=== PATIENT | male | born 1965 | race Hispanic/Latino ===

== ENCOUNTER 2018-05-23 09:11 | Emergency (ER) | payer BC ==
[2018-05-23 11:35] LABS: #Eosinphils 0.1 thou/uL (0.0-0.7); #Lymphocytes 1.7 thou/uL (1.20-3.40); #Monocytes 0.6 thou/uL (0.11-0.59); #Neutrophils 5.7 thou/uL (1.40-6.50); %Basophils 0.6 % (0.0-1.0); %Eosinophils 1.4 % (0.0-10.0); %Lymphocytes 20.8 % (21.0-51.0); %Monocytes 7.1 % (0.0-10.0); %Neutrophils 70.2 % (42.0-75.0); Hemoglobin 14.6 g/dL (14.0-18.0); Mean Corpuscular HGB CONC 34.1 g/dL (32.0-36.0); Mean Corpuscular Hemoglobin 31.7 pg (27.0-31.0); Mean Corpuscular Volume 92.9 fL (78.0-98.0); Mean Platelet Volume 7.1 fL (7.4-10.4); Platelet Count 265 thou/uL (130-400); RBC Distribution Width 12.5 % (11.5-14.5); Red Blood Cell (RBC) Count 4.61 mill/uL (4.70-6.10); White Blood Cell (WBC) Count 8.1 thou/uL (4.8-10.8)
--- NOTE | 2018-05-23 13:35 | ULT ---
VENOUS DUPLEX SONOGRAM LEFT LOWER EXTREMITY: History: Left leg pain and edema. FINDINGS: The left common femoral vein and greater saphenous junction are evaluated along the femoral, deep fem oral, popliteal and posterior tibial veins. There is good color and spectral doppler flow, compressio n, and augmentation. IMPRESSION: No sonographic evidence of DVT within the left lower extremity.
== END 2018-05-23 14:48 | disposition home or self-care (01) ==
LOC: ERS 09:11
DX: L03.116 Cellulitis of left lower limb (principal)
CPT/HCPCS: 36415; 85025